=== PATIENT | female | born 1980 | race Caucasian/White ===

== ENCOUNTER 2017-01-22 16:35 | Outpatient (CLI) ==
--- NOTE | 2017-01-23 07:37 | DI ---
EXAM: Three views of the sacroiliac joints HISTORY: Sacroiliac pain. COMPARISON: Lumbar spine x-rays same day FINDINGS: The sacroiliac joints bilaterally demonstrate patent. Joint spaces have symmetry bilateral ly. There is no focal erosion or sclerosis. The osseous structures of the pelvis are normal. Soft tissues are unremarkable. IMPRESSION: No acute abnormality of the sacroiliac joints which are symmetric bilaterally.
--- NOTE | 2017-01-23 07:38 | DI ---
EXAM: LUMBAR SPINE 5 VIEWS HISTORY: Back pain FINDINGS: Subtle scoliosis convex to the left estimated at about 3 degrees. Sacroiliac joints appea r normal. Bilateral oblique views reveal intact pars interarticularis structures. There is mild fac et arthropathy at the lumbosacral junction. Vertebral body heights and alignment are normal. No fra cture. IMPRESSION: Early facet arthropathy lumbosacral junction. Subtle scoliosis.
== END 2017-01-22 16:36 | disposition home or self-care (01) ==
LOC: AMBL 16:35 → RAD 16:36
PROVIDERS: ATTEND Nurse Practitioner Family
DX: M54.5 Low back pain (principal)

== ENCOUNTER 2018-01-18 12:13 | Outpatient (CLI) | END 2018-01-18 12:14 | disposition home or self-care (01) | LOC: RHC-LAB 12:13 | PROVIDERS: ATTEND Nurse Practitioner Family | DX: J02.9 Acute pharyngitis, unspecified (principal) | CPT/HCPCS: 87651 ==